=== PATIENT | male | born 1985 | race Caucasian/White ===

== ENCOUNTER 2018-09-25 12:05 | Day surgery (SDC) | payer BC ==
[2018-09-25] MEDS ORDERED: PROPOFOL 40 ML (15:34)
[2018-09-25] MEDS ORDERED: LIDOCAINE 100 MG SYRINGE (15:34)
[2018-09-25] MEDS ORDERED: FENTAnyl 50 MCG/ML VIAL (15:35)
== END 2018-09-25 16:19 | disposition home or self-care (01) ==
LOC: GIL 12:05
DX: K29.50 Unspecified chronic gastritis without bleeding (principal); I85.00 Esophageal varices without bleeding; K44.9 Diaphragmatic hernia without obstruction or gangrene; K20.9 Esophagitis, unspecified
CPT/HCPCS: 43239; 88305; 88312; 88313

== ENCOUNTER 2018-12-31 13:07 | Day surgery (SDC) | payer BC ==
[2018-12-31] MEDS ORDERED: LIDOCAINE 100 MG SYRINGE (14:29)
[2018-12-31] MEDS ORDERED: FENTAnyl 50 MCG/ML VIAL (14:29)
[2018-12-31] MEDS ORDERED: PROPOFOL 40 ML (14:29)
[2018-12-31] MEDS ORDERED: DIPHENHYDRAMINE 50 MG INJ IV (14:30)
[2018-12-31] MEDS ORDERED: HYDROmorphONE 1 MG/5 ML IV SYRINGE IV ×3 (14:30)
[2018-12-31] MEDS ORDERED: hydrALAzine 20 MG INJ IV (14:30)
[2018-12-31] MEDS ORDERED: TRIMETHOBENZAMIDE 100 MG/ML VIAL IM (14:30)
[2018-12-31] MEDS ORDERED: MIDAZOLAM 1 MG/ML 2 ML INJ IV (14:30)
[2018-12-31] MEDS ORDERED: MEPERIDINE 25 MG INJ IV (14:30)
[2018-12-31] MEDS ORDERED: LABETALOL HCL 20MG INJ IV (14:30)
[2018-12-31] MEDS ORDERED: EPHEDrine SULFATE 50 MG/5 ML SYG IV (14:30)
[2018-12-31] MEDS ORDERED: IPRATROPIUM (NEB) 0.5 MG/2.5 ML AMP HHN (14:30)
[2018-12-31] MEDS ORDERED: FENTAnyl 50 MCG/ML VIAL IV ×3 (14:30)
[2018-12-31] MEDS ORDERED: ALBUTEROL 0.083% (NEB) 2.5 MG/3 ML AMP HHN (14:30)
[2018-12-31] MEDS ORDERED: OXYCODONE/ACETAMINOPHEN (5/325) TAB PO ×2 (14:30)
[2018-12-31] MEDS ORDERED: ONDANSETRON 4 MG INJ IV (14:30)
== END 2018-12-31 15:56 | disposition home or self-care (01) ==
LOC: GIL 13:07
DX: K44.9 Diaphragmatic hernia without obstruction or gangrene (principal); K29.00 Acute gastritis without bleeding
CPT/HCPCS: 43239; 88305